=== PATIENT | female | born 1975 | race Caucasian/White ===

== ENCOUNTER 2016-09-01 07:21 | Outpatient (CLI) | payer OTHER ==
[~2016-09-01] VITALS: Ht 154.9 cm; Wt 84.5 kg
[2016-09-01] MEDS ORDERED: PRENTAB26 PO (07:47)
[2016-09-01 07:49] VITALS: Ht 154.9 cm; Wt 84.5 kg
== END 2016-09-01 10:35 | disposition home or self-care (01) ==
LOC: C.LD 07:21 → C.OPB 07:21
PROVIDERS: ATTEND Obstetrics & Gynecology
DX: O26.893 Other specified pregnancy related conditions, third trimester (principal); O09.523 Supervision of elderly multigravida, third trimester; Z3A.40 40 weeks gestation of pregnancy

== ENCOUNTER 2016-09-01 16:35 | Inpatient (IN) | payer OTHER ==
[~2016-09-01] VITALS: Ht 154.9 cm; Wt 83.9 kg
[~2016-09-01 16:35] MED LIST: PRENTAB26 PO
[2016-09-01] MEDS ORDERED: LACTATED RINGER'S 1000ML 1,000 ML IV SCH (16:48)
[2016-09-01] MEDS ORDERED: LACTATED RINGER'S 1000ML 1,000 ML IV PRN (16:48)
[2016-09-01 17:40] LABS: HEMATOCRIT 38.1 % (37-47); MEAN CELL VOLUME 86.2 fL (80-100); MEAN CORPUSCULAR HEMOGLOBIN 27.8 pg (25-34); MEAN CORPUSCULAR HGB CONC 32.3 g/dl (32-36); MEAN PLATELET VOLUME 9.9 fL (7.4-10.4); PLATELET COUNT 290 K/uL (130-400); RED BLOOD COUNT 4.42 M/uL (4.2-5.4); WHITE BLOOD COUNT 17.98 K/uL (4.8-10.8)
[2016-09-01 17:55] VITALS: Ht 154.9 cm; Wt 83.9 kg
[2016-09-01] MEDS ORDERED: BUPIVACAINE 0.25% 30 ML VIAL ONE (18:34)
[2016-09-01] MEDS ORDERED: FENTANYL CITRATE INJ 50 MCG/1 ML 2 ML VIAL ONE (18:34)
[2016-09-01] MEDS ORDERED: EpHEDrine SULFATE INJ 50 MG/ML AMP ONE (18:34)
[2016-09-01] MEDS ORDERED: FENTANYL 2MCG/ML ROPIV 1.25MG/ML 100ML BAG EPI ONE (18:35)
[2016-09-01] MEDS ORDERED: LACTATED RINGER'S 1000ML 500 ML IV PRN ×2 (19:14→19:31)
[2016-09-01] MEDS ORDERED: ONDANSETRON INJ 2 MG/ML 2 ML VIAL IV PRN (19:15)
[2016-09-01] MEDS ORDERED: EpHEDrine SULFATE INJ 50 MG/ML AMP IV PRN (19:15)
[2016-09-01] MEDS ORDERED: FENTANYL 2MCG/ML ROPIV 1.25MG/ML 100ML BAG EPI PRN (19:15)
[2016-09-01] MEDS ORDERED: NALOXONE HCL INJ 0.4 MG/1 ML VIAL/CARP IV PRN (19:15)
[2016-09-01] MEDS ORDERED: DiphenhydrAMINE HCL 50 MG/ML VIAL IV PRN (19:15)
[2016-09-01] MEDS ORDERED: NALBUPHINE HCL INJ 10 MG/ML AMP IV PRN (19:15)
[2016-09-01] MEDS ORDERED: OXYTOCIN 30 UNITS/500ML NSS IV PRN ×2 (19:45→23:00)
[2016-09-01] MEDS ORDERED: DiphenhydrAMINE HCL 50 MG/ML VIAL ONE (19:48)
[2016-09-01] MEDS ORDERED: OXYTOCIN 30 UNITS/500ML NSS IV ONE (19:48)
[2016-09-01] MEDS ORDERED: BENZOCAINE 20% AER SPR 82.5 GM CAN EXT PRN (23:00)
[2016-09-01] MEDS ORDERED: HYDROCORTISONE ACETATE 25 MG SUPP PR PRN (23:00)
[2016-09-01] MEDS ORDERED: DIPHTHERIA/TETANUS/PERTUSSIS 0.5 ML SYR/VIAL IM. ONE (23:00)
[2016-09-01] MEDS ORDERED: ACETAMINOPHEN/CODEINE 300/30MG TAB PO PRN ×2 (23:00)
[2016-09-01] MEDS ORDERED: IBUPROFEN 600 MG TAB PO PRN (23:00)
[2016-09-01] MEDS ORDERED: SUPERCREAM 0.870 % 15GM JAR EXT PRN (23:00)
[2016-09-01] MEDS ORDERED: LANOLIN OINT EXT PRN ×2 (23:00)
[2016-09-01] MEDS ORDERED: ACETAMINOPHEN 325 MG TAB PO PRN (23:00)
[2016-09-02] VITALS (7 sets, daily range): BP systolic 94–120; BP diastolic 58–75; PULSE 85–105; TEMP 36.7–37.3; O2SAT 95–97
--- NOTE | 2016-09-02 03:35 | DELIVERY SUMMARY ---
DATE OF OPERATION: 09/01/2016 FINDINGS: Viable female with Apgars of 8 and 9, baby delivered spontaneously over midline second degree laceration. Cord blood sample was obtained. Placenta delivered spontaneously. Laceration repaired with 4-0 Vicryl in a routine fashion. Estimated blood loss was 300 mL. PROCEDURE IN DETAIL: The patient is a 40-year-old 2, para 1 with an EDC of 01 September by a 36-week ultrasound who presented to labor and delivery in active labor. The patient had been discharged home earlier in the day in prodromal contractions. The patient states her contractions increased in intensity and she returned for evaluation. The patient's blood type B positive, antibody negative, rubella immune, hepatitis B negative. She had a negative third trimester beta strep culture. Upon admission, the patient was 5 cm dilated, 100% effaced, zero station. Artificial rupture of membranes with clear fluid. Tracing was category 2 with moderate variability with good accelerations. The patient initially declined an epidural, but after approximately 2 hours with no cervical change, Pitocin augmentation was initiated. After the Pitocin was initiated, the patient had an epidural. She progressed to full dilatation and began her second stage, she pushed for approximately 1 hour delivering a viable female infant with description as above. Cord was clamped and cut, cord blood sample was obtained. Placenta was delivered spontaneously. Inspection of the perineum showed a midline second degree laceration and these were repaired with interrupted 4-0 Vicryl subcuticular stitches. Hemostasis achieved. Sponge and needle count was correct. Estimated blood loss 300 mL. I attest to the content of the Intraoperative Record and any orders documented therein. Any exceptio ns are noted below.
[2016-09-02 06:20] LABS: HEMATOCRIT 34.3 % (37-47)
--- NOTE | 2016-09-02 07:07 | Progress Note ---
Subjective September 02, 2016. Subjective conversation w/ patient, physical exam, lab review Ambulation: ambulating normally Voiding: no voiding problems Passing Gas: Yes Diet Tolerance: Regular Diet Lochia: Small Feeding Type: Breast Feeding Pain: denies pain Comment: Patient was seen at the bedside. No acute event overnight. Review of Systems Constitutional: No fever Respiratory: No cough, No shortness of breath Cardiac: No chest pain Breast: No breast lump Abdomen: No nausea, No pain, No vomiting Female : No dysuria, No urinary frequency Patient was seen at the bedside. No acute event overnight. Objective Vital Signs Date Time Temp Pulse Resp B/P Pulse Ox O2 Delivery O2 Flow Rate FiO2 09/02/16 04:40 36.9 101 18 99/62 96 Room Air 09/02/16 01:15 97 Room Air 09/02/16 01:15 36.9 97 18 117/72 97 Room Air Physical Exam General Appearance: WELL-APPEARING, WD/WN, NO APPARENT DISTRESS Respiratory/Chest: chest non-tender, lungs clear, normal breath sounds Cardiovascular: regular rate, rhythm Abdomen: normal bowel sounds, non tender, soft Fundus: Firm, Relation to Umbilicus (about 1-2cm below U) Extremities: non-tender, no pedal edema, no calf tenderness Laboratory Results Last 24 Hours Test 09/01/16 17:25 09/02/16 06:10 White Blood Count 17.98 K/uL Red Blood Count 4.42 M/uL Hemoglobin 12.3 g/dL 11.2 g/dL Hematocrit 38.1 % 34.3 % Mean Corpuscular Volume 86.2 fL Mean Corpuscular Hemoglobin 27.8 pg Mean Corpuscular Hemoglobin Concent 32.3 g/dl RDW Standard Deviation 45.1 fL RDW Coefficient of Variation 14.4 % Platelet Count 290 K/uL Mean Platelet Volume 9.9 fL Medications Current Inpatient Medications Medications (Trade) Dose Ordered Sig/Bruno Route Start Time Stop Time Status Last Admin Dose Admin Lactated Ringer's (Lr 1000ml) 500 ml @ 999 mls/hr Q31M PRN IV 09/01/16 19:31 10/01/16 19:30 Oxytocin (Pitocin IV) 30 units UD PRN IV 09/01/16 23:00 10/01/16 22:59 Benzocaine (Dermoplast Aero Spr) 1 appln PRN PRN EXT 09/01/16 23:00 10/01/16 22:59 09/02/16 02:16 1 APPLN Cocaine HCl (Supercream 0.870% Cr) BID PRN EXT 09/01/16 23:00 09/15/16 22:59 Hydrocortisone Acetate (Anusol Hc Supp) 25 mg BID PRN VT 09/01/16 23:00 10/01/16 22:59 Lanolin (Lanolin Oint) PRN PRN EXT 09/01/16 23:00 10/01/16 22:59 Prenat Multivit/ [place]hthol Soaping Machine Operator/Iron/Folic Ac ( Vitamin Tab) 1 tab DAILY PO 09/02/16 08:00 10/02/16 07:59 Ibuprofen (Motrin Tab) 600 mg Q4H PRN PO 09/01/16 23:00 10/01/16 22:59 Acetaminophen (Tylenol Tab) 650 mg Q6H PRN PO 09/01/16 23:00 10/01/16 22:59 Acetaminophen/ Codeine Phosphate (Tylenol w/ Codeine #3 Tab) 1 tab Q4H PRN PO 09/01/16 23:00 10/01/16 22:59 Acetaminophen/ Codeine Phosphate (Tylenol w/ Codeine #3 Tab) 2 tab Q4H PRN PO 09/01/16 23:00 10/01/16 22:59 Bisacodyl (Dulcolax Tab) 5 mg 20 PO 09/02/16 20:00 09/02/16 20:01 Docusate Sodium (coLACE CAP) 100 mg BID PO 09/02/16 08:00 10/02/16 07:59 Ferrous Sulfate (Feosol Tab) 325 mg DAILY PO 09/02/16 08:00 10/02/16 07:59 Assessment and Plan Post- Day#: 1 Continue Routine Care: A/P: This is a 40 y/o female, , s/p normal vaginal delivery. She is ambulating and clinically stable. Plan: - Vitals signs are reviewed and WNL (Tmax 36.9 ) - Last Hgb is 11.2 - Blood type B+, GBS neg, Rubella Immune - Routine care - Encourage ambulation, monitor and control pain with medication as needed , continue with regular diet as tolerated and monitor lochia - Stool softeners and sitz bath recommended - Encourage breast feeding and educate about breast feeding Resident Physician Supervision Note: I interviewed and examined the patient. Discussed with Dr. Day and agree with findings and plan as documented in the note. Any exceptions or clarifications are listed here: [None] Documented By: Ronald Villar
[2016-09-02] MEDS: FERROUS SULFATE 325 MG TAB PO SCH (08:24)
[2016-09-02] MEDS: PRENATAL VITAMIN TAB PO SCH (08:24)
[2016-09-02] MEDS: DOCUSATE SODIUM 100 MG CAP PO SCH ×2 (08:25→20:27)
--- NOTE | 2016-09-02 11:42 | Anesthesia Procedure Note ---
Anesthesia Epidural Removal Nt Date & Time September 02, 2016 at 11:42 Vital Signs Pain Intensity: 0.0 Vital Signs Past 12 Hours Date Time Temp Pulse Resp B/P Pulse Ox O2 Delivery O2 Flow Rate FiO2 09/02/16 08:35 95 Room Air 09/02/16 08:35 36.9 104 20 108/71 95 Room Air 09/02/16 04:40 36.9 101 18 99/62 96 Room Air 09/02/16 01:15 97 Room Air 09/02/16 01:15 36.9 97 18 117/72 97 Room Air Notes Mental Status: alert / awake / arousable, participated in evaluation Nausea / Vomiting: adequately controlled Pain: adequately controlled Airway Patency, RR, SpO2: stable & adequate BP & HR: stable & adequate Hydration State: stable & adequate Neuraxial Anesthesia: was administered Anesthetic Complications: no major complications apparent, pt satisfied with anesthetic care Epidural: removed without complications, with tip intact
[2016-09-02] MEDS ORDERED: BISACODYL 5 MG TABEC PO SCH (20:00)
--- NOTE | 2016-09-03 07:15 | Progress Note ---
Subjective September 03, 2016. Subjective conversation w/ patient, physical exam, lab review Ambulation: ambulating normally Voiding: no voiding problems Passing Gas: Yes Diet Tolerance: Regular Diet Lochia: Small Feeding Type: Breast Feeding Pain: denies pain Comment: Patient was seen at the bedside. No acute event overnight. Review of Systems Constitutional: No fever Respiratory: No cough, No shortness of breath Cardiac: No chest pain Breast: No breast lump Abdomen: No nausea, No pain, No vomiting Female : No dysuria, No urinary frequency Denies headache Objective Vital Signs Date Time Temp Pulse Resp B/P Pulse Ox O2 Delivery O2 Flow Rate FiO2 09/02/16 23:45 36.7 85 18 94/58 Room Air 09/02/16 23:45 Room Air 09/02/16 19:45 37.0 105 18 110/72 Room Air 09/02/16 15:30 Room Air 09/02/16 15:30 36.8 101 20 116/75 Room Air 09/02/16 12:20 37.3 102 18 120/72 97 Room Air 09/02/16 08:35 95 Room Air 09/02/16 08:35 36.9 104 20 108/71 95 Room Air Physical Exam General Appearance: WELL-APPEARING, WD/WN, NO APPARENT DISTRESS Respiratory/Chest: chest non-tender, lungs clear, normal breath sounds, no respiratory distress Cardiovascular: regular rate, rhythm Abdomen: normal bowel sounds, non tender, soft Fundus: Firm, Relation to Umbilicus (about 1-2cm belwo U) Extremities: non-tender, no pedal edema, no calf tenderness Medications Current Inpatient Medications Medications (Trade) Dose Ordered Sig/Bruno Route Start Time Stop Time Status Last Admin Dose Admin Lactated Ringer's (Lr 1000ml) 500 ml @ 999 mls/hr Q31M PRN IV 09/01/16 19:31 10/01/16 19:30 Oxytocin (Pitocin IV) 30 units UD PRN IV 09/01/16 23:00 10/01/16 22:59 Benzocaine (Dermoplast Aero Spr) 1 appln PRN PRN EXT 09/01/16 23:00 10/01/16 22:59 09/02/16 02:16 1 APPLN Cocaine HCl (Supercream 0.870% Cr) BID PRN EXT 09/01/16 23:00 09/15/16 22:59 Hydrocortisone Acetate (Anusol Hc Supp) 25 mg BID PRN AR 09/01/16 23:00 10/01/16 22:59 Lanolin (Lanolin Oint) PRN PRN EXT 09/01/16 23:00 10/01/16 22:59 Prenat Multivit/ Public Relations Representative/Iron/Folic Ac ( Vitamin Tab) 1 tab DAILY PO 09/02/16 08:00 10/02/16 07:59 09/02/16 08:24 1 TAB Ibuprofen (Motrin Tab) 600 mg Q4H PRN PO 09/01/16 23:00 10/01/16 22:59 Acetaminophen (Tylenol Tab) 650 mg Q6H PRN PO 09/01/16 23:00 10/01/16 22:59 Acetaminophen/ Codeine Phosphate (Tylenol w/ Codeine #3 Tab) 1 tab Q4H PRN PO 09/01/16 23:00 10/01/16 22:59 Acetaminophen/ Codeine Phosphate (Tylenol w/ Codeine #3 Tab) 2 tab Q4H PRN PO 09/01/16 23:00 10/01/16 22:59 Docusate Sodium (coLACE CAP) 100 mg BID PO 09/02/16 08:00 10/02/16 07:59 09/02/16 20:27 100 MG Ferrous Sulfate (Feosol Tab) 325 mg DAILY PO 09/02/16 08:00 10/02/16 07:59 09/02/16 08:24 325 MG Assessment and Plan Post- Day#: 2 Continue Routine Care: A/P: This is a 40 y/o female, , s/p normal vaginal delivery. She is ambulating and clinically stable to discharge. - Vital signs are reviewed and WNL (Tmax 37.3 ) - Last Hgb 11.2 - Blood type B+, GBS neg, Rubella Immune - No signs of depression. - Routine care - Discussed resting, feeding, pain control, mastitis, control, follow up in 6 weeks and reasons to call sooner, if necessary. - Continue with pain medication as needed, and continue vitamins. - Encourage breast feeding and educate about breast feeding - Patient understands and keen for home. - Plan to discharge home Resident Physician Supervision Note: I interviewed and examined the patient. Discussed with Dr. Day and agree with findings and plan as documented in the note. Any exceptions or clarifications are listed here: [None] Documented By: Elaine Villalta
--- NOTE | 2016-09-03 07:17 | Discharge Instructions ---
Discharge Instructions Date of Service September 03, 2016. Admission Reason for Admission: Check Labor Discharge Discharge Diagnosis / Problem: s/p vaginal delivery Discharge Goals Goal(s): Routine recovery after delivery Medications Continue Dispensed Medications: supercream, dermaplast, tucks, lansinoh Activity Recommendations Activity Limitations: as noted below . Instructions / Follow-Up Instructions / Follow-Up ACTIVITY RECOMMENDATIONS: * Gradual return to full activity over the next 2-3 weeks. * No lifting - nothing heavier than baby over the next 2-3 weeks. * Do not engage in vigorous exercise, sexual activity or sports until cleared by your physician. * Do not drive or operate any motorized equipment until cleared by your physician. * You may shower/bathe daily. MEDICATIONS: For discomfort or pain, you may use Acetaminophen (Tylenol), Ibuprofen (Advil), or Naproxen (Aleve) following the package directions. For constipation you may use Colace following the package directions. BREAST CARE: If you are not breast feeding: * Wear a supportive bra 24 hours a day for one to two weeks. * Avoid stimulating your breasts and nipples as much as possible during the first few weeks after delivery. * When taking a shower, have the warm water hit your back, not breasts. * When your breasts feel full, apply ice packs. Usually three to four times a day helps ease the discomfort. * Take a mild pain medication (Tylenol / Motrin) when you are uncomfortable. If breast feeding: * Use breast milk to lubricate nipples. Lansinoh cream may be used for sore nipples. You do not need to remove cream prior to breast feeding. If using a different brand of cream, check the label for directions regarding removal of cream prior to nursing. * Wear a supportive bra. * If having problems with breasts or breast feeding, call a sales consultant insurance or your health care provider. EPISIOTOMY CARE: After delivery, if you have an episiotomy (stitches), the following steps will ease discomfort and aid healing. * For the first 24 hours after delivery, place ice packs next to your episiotomy to help reduce swelling. * After the first 24 hour-period, sitz baths, either portable or in the tub, are suggested. A shower with a shower arm sprayed over the episiotomy may be comforting. * Georgina care should be done after each voiding and bowel movement. Squirt warm water from a plastic bottle over the perineum (region of the body between the anus and urinary opening) and pat dry. * Use Dermoplast to ease discomfort. Shake container. [place] directly over the episiotomy. Place a Tucks on a clean sanitary pad next to your episiotomy. SPECIAL CARE INSTRUCTIONS: When you are discharged from the hospital, it is important for you to follow the instructions listed below: * During the first week at home, you should be able to care for yourself and your baby. In addition, the usual light household activities are encouraged. * Limit your activities to the way you feel. Do not try to clean the house or move furniture. Be sensible. * If you actively engage in sports and have done so up until the time of your delivery, you may resume these activities as soon as you feel able. This may take up to one month or even longer. Use good judgment. * Continue to take your vitamins for at least six weeks after the of your baby. * Your diet need not be limited unless you were on a special diet before your delivery. Breast-feeding mothers need around 2500 calories per day and at least 64-80 ounces of fluid per day (8 to 10 glasses). * You should eat foods from the four major food groups. Crash diets or fad diets are to be avoided. Eating lean meats, fresh fruits and vegetables, low-fat dairy products, high fiber foods and a regular exercise program, will help you get back to your pre- weight without putting your health at risk. * Constipation is sometimes a problem after delivery. Take a mild laxative as needed. If breast feeding, Milk of Magnesia is acceptable to use. You may use a suppository or Fleets enema if no episiotomy. * A daily shower or tub bath is suggested. Be sure to thoroughly and gently dry the perineum. * A bloody vaginal discharge will usually continue until around four weeks post . A small amount of bleeding may continue for as long as six weeks. Vaginal discharge changes from the bright red bleeding after delivery to pink then brownish and finally yellowish-pink before becoming white and disappearing. * Bleeding may increase with activity. Your first period may come in 4-8 weeks. If you are breast feeding, your period may be delayed even longer. * [place] (sex) can begin whenever both you and your partner feel comfortable and do not have any form of genital infection. It is recommended that you wait at least six weeks for internal and external healing to occur. If you have questions, please talk to your health care practitioner. A condom should be used to prevent infection and . * Foreplay, gentle intercourse and lubrication is very important the first several times to prevent pain. A water-based lubricant such as K-Y jelly or Astroglide may be used. * If you have RH negative blood and your baby is RH positive, you will receive RHOGAM by injection prior to discharge. The nurse will give you a card to keep with you that has the date and place that you received RHOGAM after delivery. * During your care, you had a Rubella screen done to check for the presence of rubella antibodies in your blood. If your test was negative, you will receive a Rubella vaccine prior to discharge. This vaccine may cause a fever, soreness at the injection site and flu-like symptoms. If these symptoms persist, notify your health care practitioner. is not advised for one month after a Rubella vaccine. * Verbalizes understanding of car seat law as reviewed with patient nursing. * Car Seat hand-out given and reviewed with patient by nursing. * Shaken baby information reviewed with patient by nursing. Call you doctor if: * Heavy bleeding (saturating several pads an hour) or passing clots the size of your fist. * A fever >101 degrees F (38.3 degrees C) on two occasions four hours apart and /or chills. * Unusual pain in the pelvic or vaginal areas. * "Baby Blues" lasting longer than two weeks. If you have any questions or concerns, call your health care practitioner at . FOLLOW UP VISIT: * Please call the office at to schedule a 6 week examination. It is important you keep this appointment. It is important for you to make arrangements for either yearly or twice yearly check-ups thereafter. Current Hospital Diet Patient's current hospital diet: Regular OB Diet Discharge Diet Recommended Diet: Regular Diet Pending Studies Studies pending at discharge: no Medical Emergencies . Who to Call and When: Medical Emergencies: If at any time you feel your situation is an emergency, please call [phone] immediately. . Non-Emergent Contact Non-Emergency issues call your: Remote Ruby On Rails Developer Call Non-Emergent contact if: you have a fever, temperature is above 101 . . "Provider Documentation" section prepared by Monisha Day. . VTE Core Measure Inpt VTE Proph given/why not?: Treatment not indicated
[2016-09-03 08:01] VITALS: BP 115/76; PULSE 87; TEMP 36.9
[2016-09-03] MEDS: FERROUS SULFATE 325 MG TAB PO SCH (08:23)
[2016-09-03] MEDS: PRENATAL VITAMIN TAB PO SCH (08:23)
[2016-09-03] MEDS: DOCUSATE SODIUM 100 MG CAP PO SCH (08:23)
[2016-09-03 12:30] VITALS: BP_DIAS 76; PULSE 87; TEMP 36.9
== END 2016-09-03 13:44 | disposition home or self-care (01) | DRG 775 ==
LOC: C.OPB 16:35 → C.LD 16:35 → C.OPB 16:50 → C.LD 16:50 → C.OBG 09-02 01:18
PROVIDERS: ADMIT Obstetrics & Gynecology; ATTEND Obstetrics & Gynecology
PROC: 0KQM0ZZ Repair Perineum Muscle, Open Approach (ICD-10-PCS; principal; 2016-09-01)
PROC: 10E0XZZ Delivery of Products of Conception, External Approach (ICD-10-PCS; principal; 2016-09-01)
DX: O70.1 Second degree perineal laceration during delivery (principal); O62.0 Primary inadequate contractions; Z37.0 Single live birth; Z3A.40 40 weeks gestation of pregnancy; Z23 Encounter for immunization

== ENCOUNTER → 2016-10-15 | Outpatient (CLI) | payer OTHER | END | disposition home or self-care (01) | LOC: C.PAPS 17:36 | PROVIDERS: ATTEND Obstetrics & Gynecology | DX: Z12.4 Encounter for screening for malignant neoplasm of cervix (principal) ==